=== PATIENT | female | born 1980 | race Two or more races ===

== ENCOUNTER 2016-07-14 02:10 | Outpatient (CLI) | payer MEDICAID ==
[2016-07-14 02:38] LABS: URINE BILIRUBIN NEGATIVE (NEGATIVE); URINE BLOOD 1+ (NEGATIVE); URINE GLUCOSE (UA) NEGATIVE (NEGATIVE); URINE LEUKOCYTE ESTERASE NEGATIVE (NEGATIVE); URINE NITRITE NEGATIVE (NEGATIVE); URINE PROTEIN NEGATIVE (NEGATIVE); URINE UROBILINOGEN NORMAL (0-1 mg/dl)
[2016-07-14 02:39] LABS: URINE APPEARANCE CLEAR; URINE COLOR YELLOW
[2016-07-14 02:41] VITALS: BMI 24.4
[2016-07-14 02:48] LABS: URINE BACTERIA 0
[2016-07-14] MEDS ORDERED: HYDROCODONE BIT/ACETAMINOPHEN 10 MG/325 MG TAB PO ONE (03:07)
== END 2016-07-14 04:04 | disposition home or self-care (01) ==
LOC: FBC 02:10 → FBCOUT 02:10
PROVIDERS: ATTEND Family Medicine
DX: O26.892 Other specified pregnancy related conditions, second trimester (principal); R10.30 Lower abdominal pain, unspecified; Z3A.24 24 weeks gestation of pregnancy
CPT/HCPCS: 87086; 81001; 59050; G0463

== ENCOUNTER 2016-09-15 14:25 | Outpatient (CLI) | payer MEDICAID ==
[2016-09-15 14:54] VITALS: BMI 25.4
[2016-09-15 15:07] LABS: SPECIFIC GRAVITY 1.015 (1.001-1.030); URINE APPEARANCE CLEAR; URINE BILIRUBIN NEGATIVE (NEGATIVE); URINE BLOOD NEGATIVE (NEGATIVE); URINE COLOR YELLOW; URINE GLUCOSE (UA) NEGATIVE (NEGATIVE); URINE LEUKOCYTE ESTERASE NEGATIVE (NEGATIVE); URINE NITRITE NEGATIVE (NEGATIVE); URINE PROTEIN NEGATIVE (NEGATIVE); URINE UROBILINOGEN NORMAL (0-1 mg/dl)
== END 2016-09-15 18:33 | disposition home or self-care (01) ==
LOC: FBCOUT 14:25 → FBC 14:26 → FBCOUT 18:33
PROVIDERS: ATTEND Family Medicine
DX: O47.03 False labor before 37 completed weeks of gestation, third trimester (principal); Z3A.33 33 weeks gestation of pregnancy
CPT/HCPCS: 81003; 59025; G0463

== ENCOUNTER 2016-09-18 22:08 | Outpatient (CLI) | payer MEDICAID ==
[2016-09-18 22:35] VITALS: BMI 26.4
== END 2016-09-18 23:01 | disposition home or self-care (01) ==
LOC: FBC 22:08 → FBCOUT 22:08
PROVIDERS: ATTEND Family Medicine
DX: O46.90 Antepartum hemorrhage, unspecified, unspecified trimester (principal); O09.529 Supervision of elderly multigravida, unspecified trimester; Z3A.00 Weeks of gestation of pregnancy not specified
CPT/HCPCS: 59025; G0463